=== PATIENT | female | born 1960 | race Caucasian/White ===

== ENCOUNTER 2020-01-04 14:48 | Outpatient (CLI) | payer OTHER, SELFPAY ==
--- NOTE | 2020-01-04 14:56 | MM_ITS ---
WS: [id number] SCREENING DIGITAL MAMMOGRAM WITH CAD HISTORY: SCREENING COMPARISON: 02/05/2017 and 12/27/2016 Bilateral CC and MLO views submitted. Computer aided detection analyzed. Breast composition: There are scattered areas of fibroglandular density. No suspicious masses, microc alcifications or architectural distortion. MM/[place] [id number] IMPRESSION: BI-RADS: 1-Negative FOLLOW UP: 1 Year Follow-up
--- NOTE | 2020-01-04 15:39 | XR_ITS ---
WS: [id number] DEXA (DUAL ENERGY X-RAY ABSORPTIOMETRY) Bone mineral density was performed using a [employer] machine. HISTORY: ASYMPTOMATIC POSTMENOPAUSAL STATUS COMPARISON: 07/25/2014 Lumbar spine BMD (L1-L4): 0.907 g/cm2 T score: -2.3 Z score: -1.9 Total hip BMD: Left: 0.876 g/cm2. T score: -1.0 Z score: -0.7 Right: 0.858 g/cm2. T score: -1.2 Z score: -0.9 10 year probability of a major osteoporotic fracture is 12%. Compared to the prior study from 07/25/2014. Lumbar spine bone mineral density has decreased by 13%. Bilateral hips bone mineral density has decrease by 8%. XR/XR DEXA axial skeleton* [id number] IMPRESSION: OSTEOPENIA based upon the WHO classification for females. Significant decrease in bone mineral density within the lumbar spine and hips s camille the prior study.
== END 2020-01-04 14:49 | disposition home or self-care (01) ==
LOC: RADSHAW 14:51
PROVIDERS: PCP Internal Medicine; Visit Provider Internal Medicine
DX: Z78.0 Asymptomatic menopausal state (principal); Z12.31 Encounter for screening mammogram for malignant neoplasm of breast; M85.89 Other specified disorders of bone density and structure, multiple sites
CPT/HCPCS: 77067; 77080

== ENCOUNTER 2020-01-12 14:45 | Outpatient (CLI) | payer OTHER, SELFPAY ==
--- NOTE | 2020-01-12 15:00 | USCV_ITS ---
Dalia Forrester Age: 59 Gender: F : 1960 Exam Date: 01/12/2020 14:50 Ordering Phys: Marcelina Sierra MD ([email or web address]) Technologist: Estelita Baxter Exam Location: [facility] [place] Indication: SOB BP: / HR: 86 Rhythm: Sinus Technical Quality: Adequate MEASUREMENTS (Male / Female) Normal Values 2D ECHO LV Diastolic Diameter PLAX 3.3 cm 4.2 - 5.9 / 3.9 - 5.3 cm LV Systolic Diameter PLAX 2.7 cm LV Chamber Size 3.7 cm IVS Diastolic Thickness 1.7 cm 0.6 - 1.0 / 0.6 - 0.9 cm IVS Systolic Thickness 1.4 cm LVPW Diastolic Thickness 1.2 cm 0.6 - 1.0 / 0.6 - 0.9 cm LVPW Systolic Thickness 1.5 cm RV Chamber Size 3.6 cm LVOT Diameter 2.0 cm LV Ejection Fraction 2D Teich 38.8 % LV Ejection Fraction MOD 2C 64.4 % LV Ejection Fraction 2C AL 63.8 % LA Diameter 4.3 cm LA Width 2.9 cm LA Height 4.6 cm RA Width 3.7 cm RA Height 3.7 cm Aorta at Sinotubular Diameter 2.9 cm M-MODE LV Diastolic Diameter MM 5.7 cm 4.2 - 5.9 / 3.9 - 5.3 cm LV Systolic Diameter MM 3.8 cm LV Ejection Fraction MM Teich 62.3 % IVS Diastolic Thickness MM 0.7 cm 0.6 - 1.0 / 0.6 - 0.9 cm IVS Systolic Thickness MM 1.1 cm LVPW Diastolic Thickness MM 0.9 cm 0.6 - 1.0 / 0.6 - 0.9 cm LVPW Systolic Thickness MM 1.2 cm RV Diastolic Diameter MM 1.3 cm Aortic Annulus Diameter 3.6 cm LA Ao Ratio MM 1.2 MV E Point Septal Separation 0.3 cm DOPPLER AV Peak Velocity 143.0 cm/s LVOT Peak Velocity 118.0 cm/s AV Area Cont Eq vti 2.6 cm squared AV Area Cont Eq pk 2.6 cm squared MV Area PHT 6.3 cm squared Mitral E to A Ratio 0.8 MV E' Velocity 8.0 cm/s Mitral E to MV E' Ratio 7.7 Mitral E to LV E' Lateral Ratio 7.8 Mitral E to LV E' Septal Ratio 7.6 TR Peak Velocity 231.5 cm/s TR Peak Gradient 21.4 mmHg TR Mean Velocity 199.5 cm/s TR Mean Gradient 16.2 mmHg TR Velocity Time Integral 69.0 cm TV Peak E Velocity 71.0 cm/s PV Peak Velocity 93.0 cm/s RV Acceleration Time 0.1 s RV Ejection Time 0.3 s RV AcT/ET 0.5 FINDINGS Left Ventricle Normal left ventricular cavity size. Normal left ventricular systolic function. No regional wall motion abnormalities. Left ventricular ejection fraction is estimated at 62 %. Grade I/IV diastolic dysfunction (abnormal relaxation filling pattern), normal to mildly elevated filling pressures. Right Ventricle Normal right ventricular size. RVSP could not be calculated due to incomplete tricuspid regurgitation velocity profile. Right Atrium The right atrium is normal in size. Left Atrium The left atrium is normal in size. Mitral Valve Structurally normal mitral valve without significant stenosis or prolapse. There is no mitral regurgitation. Aortic Valve Moderate aortic valve calcification. No aortic valve stenosis. No aortic valve regurgitation. Tricuspid Valve [id number] tricuspid valve regurgitation. Pulmonic Valve Structurally normal pulmonic valve without significant stenosis. There is no pulmonic regurgitation. Pericardium Normal pericardium without effusion. Aorta Normal ascending aorta dimension. CONCLUSIONS 1-Normal left ventricular cavity size. Normal left ventricular systolic function. No regional wall motion abnormalities. Left ventricular ejection fraction is estimated at 62 %. Grade I/IV diastolic dysfunction (abnormal relaxation filling pattern), normal to mildly elevated filling pressures. 2-Normal right ventricular size. RVSP could not be calculated due to incomplete tricuspid regurgitation velocity profile. 3-Moderate aortic valve calcification. No aortic valve stenosis. No aortic valve regurgitation. 0-Gmli-ma-moderate tricuspid valve regurgitation. 5-There is no pericardial effusion. 6-Right atrial pressure is around 5 mm of mercury. 7-No significant change since the prior echocardiogram study of 05/14/2019. Marcelina Sierra MD (Electronically Signed) Final Date: 12 January 2020 18:03 S
== END 2020-01-12 14:46 | disposition home or self-care (01) ==
LOC: RAD 14:49
PROVIDERS: PCP Internal Medicine; Visit Provider Internal Medicine Cardiovascular Disease
DX: R06.02 Shortness of breath (principal); I08.2 Rheumatic disorders of both aortic and tricuspid valves
CPT/HCPCS: 93306

== ENCOUNTER → 2020-02-17 17:04 | Outpatient (BNVA) | payer OTHER, SELFPAY | PROVIDERS: PCP Internal Medicine; Visit Provider Nurse Practitioner Family | DX: S63.502A Unspecified sprain of left wrist, initial encounter (principal); X58.XXXA Exposure to other specified factors, initial encounter; L25.5 Unspecified contact dermatitis due to plants, except food; Z68.26 Body mass index [BMI] 26.0-26.9, adult; F17.211 Nicotine dependence, cigarettes, in remission | CPT/HCPCS: 73110 ==

== ENCOUNTER 2021-04-04 07:30 | Outpatient (CLI) | payer OTHER, SELFPAY ==
[2021-04-04 07:46] VITALS: BP 127/86; PULSE 73; RESP 18; TEMP 37.1; O2SAT 96; BMI 27.2
[2021-04-04 08:19] VITALS: BP 137/91; PULSE 70; RESP 16; O2SAT 95
[2021-04-04 09:46] VITALS: BP 136/90; PULSE 70; RESP 16; TEMP 36.7; O2SAT 98
== END 2021-04-04 07:31 | disposition home or self-care (01) ==
LOC: OPS 07:33
PROVIDERS: PCP Internal Medicine; Visit Provider Nurse Practitioner
DX: U07.1 COVID-19 (principal)
CPT/HCPCS: 96365

== ENCOUNTER → 2021-11-19 12:49 | Outpatient (BNVA) | payer OTHER, SELFPAY | PROVIDERS: PCP Internal Medicine; Visit Provider Podiatrist Foot & Ankle Surgery | DX: L84 Corns and callosities (principal); R23.4 Changes in skin texture; M20.40 Other hammer toe(s) (acquired), unspecified foot; M21.611 Bunion of right foot; M21.612 Bunion of left foot; Z87.891 Personal history of nicotine dependence | CPT/HCPCS: 99213 ==

== ENCOUNTER 2022-04-05 13:05 | Outpatient (CLI) | payer OTHER, SELFPAY ==
--- NOTE | 2022-04-05 13:08 | MM_ITS ---
WS: [id number] BILATERAL SCREENING DIGITAL TOMOSYNTHESIS MAMMOGRAM WITH CAD HISTORY: SCREENING COMPARISON: 12/27/2016, 01/04/2020 Bilateral CC and MLO views with tomosynthesis and synthetic mammography submitted. Computer aided det ection analyzed. Breast composition: There are scattered areas of fibroglandular density. No suspicious masses, microc alcifications or architectural distortion. Again noted is asymmetry seen on the LEFT lateral projecti on which has been previously evaluated in 2017 with no increase or change. No suspicious mass or calc ification. MM/[place] [id number] IMPRESSION: BI-RADS: 2-Benign FOLLOW UP: 1 Year Follow-up
== END 2022-04-05 13:06 | disposition home or self-care (01) ==
LOC: RAD 13:06
PROVIDERS: PCP Internal Medicine; Visit Provider Internal Medicine
DX: Z12.31 Encounter for screening mammogram for malignant neoplasm of breast (principal)
CPT/HCPCS: 77063; 77067

== ENCOUNTER 2022-04-23 10:50 | Outpatient (CLI) | payer OTHER, SELFPAY ==
--- NOTE | 2022-04-23 10:58 | MR_ITS ---
WS: [id number] MRI LEFT SHOULDER HISTORY: PAIN IN LEFT SHOULDER COMPARISON: None available. TECHNIQUE: Multiplanar sequences of the shoulder joint are submitted. Mild AC joint narrowing with marrow edema along the articular surfaces. Mild encroachment upon the bradley praspinatus tendon by an osteophyte from the distal clavicle. Very small amount of fluid in the subde ltoid bursa. Os acromion present. Normal biceps tendon. Mild subacromial impingement. Extensive subchondral degenerative cystic changes in the posterior lateral humeral head. Moderate heather rowing of the glenohumeral joint. Articular surface tear measuring 5 mm involving the distal supraspi natus tendon. There is an additional tear more distally measuring only a couple millimeters involving the supraspinatus tendon. Mild tendinopathy and fraying along the surfaces of the tendon. Mild tendi nopathy in the distal subscapularis tendon but no tear is identified. Infraspinatus tendon with mild tendinopathy. No tear. Mild intrasubstance degeneration involving the labrum, particularly the anteri or labrum. No tear. MR/MR shoulder LT wo con* [id number] IMPRESSION: 1. Tears involving the distal supraspinatus tendon. There is a very small tear distally near the insertion site. Additional articular surface tear measuring 5 mm slightly more proximal. Distal tendinopathy also present in the supraspina tus tendon. 2. No muscle atrophy or edema. 3. Os acromion 4. Mild AC joint narrowing with mild encroachment upon the supraspinatus tendo n. 5. Mild subacromial impingement. 6. Numerous degenerative subchondral cystic changes involving the posterior la teral humeral head.
== END 2022-04-23 10:51 | disposition home or self-care (01) ==
LOC: RAD 10:51
PROVIDERS: PCP Internal Medicine; Visit Provider Internal Medicine
DX: M75.102 Unspecified rotator cuff tear or rupture of left shoulder, not specified as traumatic (principal); M75.42 Impingement syndrome of left shoulder
CPT/HCPCS: 73221

== ENCOUNTER 2023-02-13 12:58 | Outpatient (CLI) | payer OTHER, SELFPAY ==
--- NOTE | 2023-02-13 13:08 | CT_ITS ---
WS: [id number] LDCT LUNG CANCER SCREENING TECHNIQUE: Noncontrast CT of the chest with coronal and sagittal reformatted images. CLINICAL INFORMATION: NICOTINE DEPENDENCE, CIGARETTES COMPARISON: None. DLP: 84.51 mGy.cm DIvol: Mean CTDIvol: 1.70 (mGy) All CT scans at [facility] use at least one of these dose optimization techniques: automat ed exposure control; mA and/or kV adjustment per patient size (includes targeted exams where dose is matched to clinical indication); or iterative reconstruction. FINDINGS: 6 mm noncalcified nodule RIGHT upper lobe along the fissure. This is probably benign and re commend 6 month follow-up. Aortic calcification. Coronary calcification. No mediastinal or hilar lymphadenopathy. Small esophage al hiatal hernia. No axillary lymphadenopathy. Adrenal glands are normal. Chronic anterior wedging at T12. CT/CT lung screening [id number] IMPRESSION:6 mm noncalcified nodule RIGHT upper lobe along the fissure. This is probably benign and recommend 6 month follow-up. LUNG-RADS: 3-Probably Benign FOLLOW UP: 6 Month LDCT
--- NOTE | 2023-02-13 13:08 | XR_ITS ---
WS: [id number] SCREENING DEXA SCAN [employer] CLINICAL INFORMATION: ASYMPTOMATIC POSTMENOPAUSAL COMPARISON: 2019 FINDINGS: The L1-L4 bone mineral density measures 1.004 g/cm2. This corresponds to a T score score of -1.5 and Z score of -1.1. Left femoral neck bone mineral density measures 0.902 g/cm2. This corresponds to a T score of -0.8 an d Z score of -0.5. Right femoral neck bone mineral density measures 0.889 g/cm2. This corresponds to a T score -0.9of an d Z score of -0.6. Mean femoral neck bone mineral density measures 0.896 g/cm2. This corresponds to a T score of -0.9 an d Z score of -0.5. XR/XR DEXA axial skeleton* [id number] IMPRESSION: Osteopenia lumbar spine. Normal bone mineralization femoral necks approaching o steopenia. Patient's FRAX calculated 10 year probability for major osteoporotic fracture i s 12.3 % and osteoporotic hip fracture is 0.8%. Since 2020, Bone mineral density in the lumbar spine increased 10.7% Bone mineral density in the femoral necks increased 3.3%
== END 2023-02-13 12:59 | disposition home or self-care (01) ==
PROVIDERS: PCP Internal Medicine; Visit Provider Internal Medicine
DX: Z13.820 Encounter for screening for osteoporosis (principal); Z78.0 Asymptomatic menopausal state; Z12.2 Encounter for screening for malignant neoplasm of respiratory organs; F17.210 Nicotine dependence, cigarettes, uncomplicated; M85.88 Other specified disorders of bone density and structure, other site
CPT/HCPCS: 71271; 77080

== ENCOUNTER 2023-09-12 14:44 | Outpatient (CLI) | payer OTHER, SELFPAY ==
--- NOTE | 2023-09-12 14:46 | CT_ITS ---
WS: [id number] LDCT LUNG CANCER SCREENING TECHNIQUE: Noncontrast CT of the chest with coronal and sagittal reformatted images. CLINICAL INFORMATION: PULMONARY NODULE COMPARISON: 02/13/2023 DLP: 82.09 mGy.cm DIvol: Mean CTDIvol: 1.70 (mGy) All CT scans at [facility] use at least one of these dose optimization techniques: automat ed exposure control; mA and/or kV adjustment per patient size (includes targeted exams where dose is matched to clinical indication); or iterative reconstruction. FINDINGS: Again seen is the 6 mm noncalcified nodule RIGHT upper lobe along the fissure unchanged compared to p revious. No new suspicious pulmonary parenchymal opacities. Mild thoracic curve. Mild thoracic kyphos is. Aortic calcification. Coronary calcification. No mediastinal or hilar lymphadenopathy. Small esophage al hiatal hernia. No axillary lymphadenopathy. Adrenal glands are normal. Small splenule. Chronic ant erior wedging at T12. IMPRESSION: CT/CT lung screening [id number] LUNG-RADS: 2-Benign Appearance or Behavior FOLLOW UP: 12 Month: Continue annual screening with LDCT
== END 2023-09-12 14:45 | disposition home or self-care (01) ==
LOC: RAD 14:44
PROVIDERS: PCP Internal Medicine; Visit Provider Internal Medicine
DX: Z12.2 Encounter for screening for malignant neoplasm of respiratory organs (principal); R91.1 Solitary pulmonary nodule
CPT/HCPCS: 71271

== ENCOUNTER 2024-07-26 15:21 | Outpatient (CLI) | payer OTHER, SELFPAY ==
--- NOTE | 2024-07-26 15:30 | XRR_ITS ---
PROCEDURE INFORMATION: Exam: XR Left Knee Exam date and time: 07/26/2024 3:44 PM Age: 63 years old Clinical indication: Pain; Knee; Left; Additional info: Pain in left knee TECHNIQUE: Imaging protocol: Radiologic exam of the left knee. Views: 4 or more views. COMPARISON: No relevant prior studies available. FINDINGS: Bones/joints: Normal. Soft tissues: Normal. XR/XR knee LT 4V [id number] IMPRESSION: No acute findings.
== END 2024-07-26 15:22 | disposition home or self-care (01) ==
LOC: RAD 15:28
PROVIDERS: PCP Internal Medicine; Visit Provider Internal Medicine
DX: M25.562 Pain in left knee (principal)
CPT/HCPCS: 73564

== ENCOUNTER → 2024-08-17 13:24 | Outpatient (BNVA) | payer OTHER, SELFPAY | PROVIDERS: PCP Internal Medicine; Referring Provider Internal Medicine; Visit Provider Internal Medicine Cardiovascular Disease | DX: R07.9 Chest pain, unspecified (principal) | CPT/HCPCS: 93005 ==

== ENCOUNTER → 2024-08-24 08:40 | Outpatient (BNVA) | payer OTHER, SELFPAY | PROVIDERS: PCP Internal Medicine; Visit Provider Physician Assistant | DX: M17.12 Unilateral primary osteoarthritis, left knee; M23.304 Other meniscus derangements, unspecified medial meniscus, left knee | CPT/HCPCS: 20610; 73560; 73565; 99203; J3301 ==

== ENCOUNTER 2024-10-01 10:38 | Outpatient (CLI) | payer OTHER, SELFPAY ==
--- NOTE | 2024-10-01 | MM_ITS ---
WS: [id number] BILATERAL SCREENING DIGITAL TOMOSYNTHESIS MAMMOGRAM WITH CAD HISTORY: ANNUAL SCREENING COMPARISON: 04/05/2022, 01/04/2020 Bilateral CC and MLO views with tomosynthesis and synthetic mammography submitted. Computer aided detection analyzed. Breast composition: There are scattered areas of fibroglandular density. No suspicious masses, microcalcifications or architectural distortion. MM/MM scr BI tomosynthesis [id number] IMPRESSION: BI-RADS: 2 - Benign. FOLLOW UP: 1 Year Follow-up
== END 2024-10-01 10:39 | disposition home or self-care (01) ==
PROVIDERS: PCP Internal Medicine; Visit Provider Internal Medicine
DX: Z12.31 Encounter for screening mammogram for malignant neoplasm of breast (principal); R92.323 Mammographic fibroglandular density, bilateral breasts
CPT/HCPCS: 77063; 77067

== ENCOUNTER → 2024-11-16 14:40 | Outpatient (BNVA) | payer OTHER, SELFPAY | PROVIDERS: PCP Internal Medicine; Visit Provider Internal Medicine Cardiovascular Disease | DX: I25.10 Atherosclerotic heart disease of native coronary artery without angina pectoris (principal); I10 Essential (primary) hypertension; I25.2 Old myocardial infarction; R07.89 Other chest pain | CPT/HCPCS: 99214 ==

== ENCOUNTER → 2024-12-28 09:12 | Outpatient (BNVA) | payer OTHER, SELFPAY | PROVIDERS: PCP Internal Medicine; Visit Provider Physician Assistant | DX: M17.12 Unilateral primary osteoarthritis, left knee (principal); M23.303 Other meniscus derangements, unspecified medial meniscus, right knee | CPT/HCPCS: 20610; 99213; J3301; J9999 ==

== ENCOUNTER → 2025-05-24 14:10 | Outpatient (BNVA) | payer OTHER, SELFPAY | PROVIDERS: PCP Internal Medicine; Visit Provider Internal Medicine Cardiovascular Disease | DX: I25.10 Atherosclerotic heart disease of native coronary artery without angina pectoris (principal); I10 Essential (primary) hypertension; E11.69 Type 2 diabetes mellitus with other specified complication; E78.5 Hyperlipidemia, unspecified; R07.9 Chest pain, unspecified; I34.0 Nonrheumatic mitral (valve) insufficiency; Z95.5 Presence of coronary angioplasty implant and graft; I25.2 Old myocardial infarction | CPT/HCPCS: 99214 ==